=== PATIENT | female | born 1990 | race African-American/Black ===

== ENCOUNTER 2017-10-09 13:48 | Emergency (ER) | payer OTHER ==
[~2017-10-09] VITALS: Ht 170.2 cm; Wt 71.2 kg
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
[2017-10-09] MEDS ORDERED: CYCLOBENZAPRINE5 M2 PO ×2 (14:40→14:46)
[2017-10-09] MEDS ORDERED: 0 (15:34)
== END 2017-10-09 15:08 ==
LOC: ERH 13:48
DX: M54.2 Cervicalgia (principal)